=== PATIENT | male | born 2000 | race Two or more races ===

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

== ENCOUNTER 2021-05-21 02:59 | Emergency (ER) | payer BC ==
[2021-05-21 03:20] VITALS: BP 142/92
== END 2021-05-21 03:34 | disposition left against medical advice (07) ==
LOC: EDBD 02:59 → ER 02:59
DX: F10.10 Alcohol abuse, uncomplicated (principal); Z53.21 Procedure and treatment not carried out due to patient leaving prior to being seen by health care provider